=== PATIENT | female | born 2000 | race Caucasian/White ===

== ENCOUNTER 2021-12-24 20:59 | Emergency (ER) | payer MEDICAID, OTHER ==
[~2021-12-24] VITALS: Ht 162.6 cm; Wt 70.0 kg
[2021-12-24] MEDS ORDERED: LORazepam 1 MG tablet PO ONE (21:20)
--- NOTE | 2021-12-24 21:36 | NUR ---
Pt arrived in [facility]. Pt identifies as he/him states he has been feeling suicidal and usually takes adderal and zoloft but hasnt taken any meds in 3 months due to no insurance. Pt states he is . is [place] . Pt appears to be anxious and was provided with Ativan by nurse as he arrived in [facility]. Pt is cooperative, states he has received 2 covid vaccine doses but doesnt recall the dates.
[2021-12-24 22:02] LABS: CLARITY,URINE SLIGHTLY CLOUDY (Clear); COLOR,URINE YELLOW (Yellow); GLUCOSE, URINE NEGATIVE (Neg); KETONES,URINE 40 mg/dl (Neg); LEUKOCYTE ESTERASE ,URINE NEGATIVE (Neg); NITRITES, URINE NEGATIVE (Neg); OCCULT BLOOD,URINE NEGATIVE (Neg); PROTEIN,URINE NEGATIVE (Neg)
[2021-12-24 22:08] LABS: UA COLLECTION TYPE CLN CATCH MIDSTREAM
[2021-12-24 22:10] LABS: URINE AMPHETAMINE SCREEN NEGATIVE (Neg); URINE BARBITUATE SCREEN NEGATIVE (Neg); URINE BENZODIAZEPINES SCREEN NEGATIVE (Neg); URINE CANNABINOID SCREEN POSITIVE (Neg); URINE COCAINE SCREEN NEGATIVE (Neg); URINE METHADONE SCREEN NEGATIVE (Neg); URINE OPIATE SCREEN NEGATIVE (Neg); URINE PHENCYCLIDINE SCREEN NEGATIVE (Neg)
[2021-12-24 22:12] LABS: BACTERIA,URINE FEW /HPF (Neg); MUCUS STRANDS FEW /LPF (Neg); RBC,URINE 0-2 /HPF (0-2); SQUAMOUS EPITHELIAL CELL,UR MANY /LPF (FEW); WBC,URINE 0-4 /HPF (0-4)
[2021-12-24 22:25] LABS: BASOPHILS # (AUTO) 0.1 X10'3 (0-0.2); BASOPHILS % (AUTO) 0.8 % (0-1); EOSINOPHILS # (AUTO) 0.1 X10'3 (0-0.9); EOSINOPHILS % (AUTO) 1.3 % (0-6); HEMATOCRIT 39.2 % (35.0-45.0); HEMOGLOBIN 13.5 g/dl (12.0-16.0); LYMPHOCYTES # (AUTO) 1.9 X10'3 (1.1-4.8); LYMPHOCYTES % (AUTO) 24.4 % (21-51); MEAN CORPUSCULAR HEMOGLOBIN 33.9 PG (27.0-31.0); MEAN CORPUSCULAR HGB CONC 34.4 g/dL (33.0-36.5); MEAN CORPUSCULAR VOLUME 98.4 FL (78-98); MEAN PLATELET VOLUME 7.3 FL (7.4-10.4); MONOCYTES # (AUTO) 0.4 X10'3 (0-0.9); MONOCYTES % (AUTO) 5.3 % (2-12); NEUTROPHILS # (AUTO) 5.4 X10'3 (1.8-7.7); NEUTROPHILS % (AUTO) 68.2 % (42-75); PLATELET COUNT 220 X10'3 (140-440); RED BLOOD COUNT 3.98 X10'6 (4.20-5.60); RED CELL DISTRIBUTION WIDTH 13.1 % (11.5-14.5)
[2021-12-24] MEDS ORDERED: NO HOME MEDS (22:34)
--- NOTE | 2021-12-24 22:45 | NUR ---
Pt is laying in bed sleeping, laying on left side appears to be resting comfortably.
[2021-12-24 22:46] LABS: ALANINE AMINOTRANSFERASE 16 U/L (12-78); ALBUMIN 3.8 G/DL (3.4-5.0); ALBUMIN/GLOBULIN RATIO 1.2 (1.1-1.5); ALKALINE PHOSPHATASE 40 IU/L (46-116); ANION GAP 3 (8-16); ASPARTATE AMINO TRANSFERASE 9 U/L (10-37); BLOOD UREA NITROGEN 12 MG/DL (7-18); BUN/CREATININE RATIO 15.4 (6.6-38.0); CALCIUM 8.4 MG/DL (8.5-10.1); CHLORIDE 109 MMOL/L (99-107); CREATININE 0.78 MG/DL (0.40-0.90); GLUCOSE 117 MG/DL (70-104); POTASSIUM 3.5 MMOL/L (3.5-5.1); SODIUM 141 MMOL/L (135-145); TOTAL CARBON DIOXIDE 29.3 MMOL/L (24-32); TOTAL PROTEIN 7.1 G/DL (6.4-8.2); eGFR > 90 ML/MIN
[2021-12-24 22:51] LABS: ETHANOL < 0.010 GM/DL (0.0-0.010)
--- NOTE | 2021-12-25 00:46 | NUR ---
Pt is in bed asleep rr even and unlabored
--- NOTE | 2021-12-25 02:28 | NUR ---
Pt is asleep rr even and unlabored
--- NOTE | 2021-12-25 05:41 | NUR ---
Pt is laying in bed asleep. RR even and unlabored
--- NOTE | 2021-12-25 06:35 | NUR ---
Patient sleeping supine. No distress observed. Continue to monitor.
[2021-12-25 08:05] VITALS: BP 97/54
--- NOTE | 2021-12-25 08:11 | NUR ---
Patient eating breakfast. No distress observed. Continue to monitor.
--- NOTE | 2021-12-25 08:40 | NUR ---
[facility], evaluating patient. No distress observed. Continue to monitor.
--- NOTE | 2021-12-25 09:05 | NUR ---
Patient's visiting. No distress observed. Continue to monitor.
== END 2021-12-25 10:30 | disposition home or self-care (01) ==
LOC: ER 21:00
DX: R45.851 Suicidal ideations (principal); Z20.822 Contact with and (suspected) exposure to COVID-19; F32.9 Major depressive disorder, single episode, unspecified; F90.9 Attention-deficit hyperactivity disorder, unspecified type; F41.9 Anxiety disorder, unspecified
CPT/HCPCS: 36415; 80053; 80305; 80320; 81001; 84443; 85025; 87635; 99285; C9803

== ENCOUNTER 2024-11-30 11:19 | Emergency (ER) | payer MEDICAID, OTHER, SELFPAY ==
[~2024-11-30] VITALS: Ht 162.6 cm; Wt 84.7 kg
[~2024-11-30 11:19] MED LIST: NO HOME MEDS
[2024-11-30 11:26] VITALS: BP 145/81; PULSE 94; RESP 16; TEMP 98.2; O2SAT 97
[2024-11-30] MEDS: dexamethasone sod phosphate 10mg/ml inj IM ONE (12:39)
[2024-11-30] MEDS ORDERED: PRED20TA PO (12:40)
[2024-11-30] MEDS ORDERED: HYDR-3686 PO (12:40)
== END 2024-11-30 12:44 | disposition home or self-care (01) ==
LOC: ER 11:19
DX: T78.49XA Other allergy, initial encounter (principal); L50.1 Idiopathic urticaria; F32.A Depression, unspecified; Z91.048 Other nonmedicinal substance allergy status; X58.XXXA Exposure to other specified factors, initial encounter
CPT/HCPCS: 96372; 99283; J1100